=== PATIENT | female | born 1985 | race Caucasian/White ===

== ENCOUNTER 2022-05-31 02:53 | Day surgery (SDC) | payer BC, SELFPAY ==
[2022-05-24 14:27] VITALS: BMI 36.0
--- NOTE | 2022-05-24 14:40 | PC.NURSE ---
Report to the Outpatient Waiting Room, entrance under the green pavilion located off [facility], at time __6:15AM on date _05/31/22 . Planned Procedure Time: ___8:15AM . Time changes happen often and if your time is changed the preop area will call you the afternoon before. - You and your visitor will be asked to self-screen and do not enter if you have any COVID symptoms. - We encourage only one visitor and NO visitors under age 16 are allowed at this time. Your visitor will receive communication by the phone number that is given day of service. - The patient visitor is requested to social distance or may leave the building when not with patient due to restrictions. - A mask is required within the hospital. Patients may have clear liquids (water, carbonated beverages, clear teas, apple juice) until 3 hours prior to surgery with a maximum of 20 ounces. - No food from midnight until time of surgery Take the following medications with a SIP of water the morning of surgery: ___RIZATRIPTAN NEEDED Medications to discontinue per physician __HOLD ALL VITAMINS/SUPPLEMENTS 3 DAYS PRE-OP Date to take last dose____05/28/22 Please no make-up, nail vietnamese, hairspray, perfume, deodorant, or body powder the day of surgery. No jewelry (including any body piercings) or valuables the day of surgery, leave them at home. Please take a shower or bath the night before, or the morning of, surgery with an antibacterial soap. Wear comfortable, loose fitting clothing. Children are encouraged to wear pajamas. - Jewelry must be removed prior to entering the operating room. Rings and piercings that are not removed may be cut off. - The hospital will not accept responsibility for valuables. - Please leave all valuables, including medications, at home the day of surgery. If you are going home after surgery, a licensed combine driver must drive you home. - NO public transportation without another adult. - We recommend that an adult stay with you for 24 hours following discharge. - We also recommend that you do not drive, make important decision, drink alcoholic beverages, or take any drugs that were not prescribed by your health care provider for at least 24 hours after your discharge time. Follow any additional instructions given to you from your surgeon. If you or anyone in your household have experienced Covid symptoms in the past week, please notify your surgeon or the nurse liaison at the phone number below for possible testing. Telephone instructions given to __PATIENT and asked if any additional questions and then verbalized understanding. Patient advised to call surgeon office or pre surgery nurse liaison [phone] if any additional questions.
[2022-05-31] MEDS: ACETAMINOPHEN 500 MG TABLET 1000 MG PO (06:50)
[2022-05-31] MEDS: LACTATED RINGERS 1,000 ML 30 ML IV CONT (06:55)
[2022-05-31 07:13] VITALS: BP 126/68; PULSE 72; RESP 16; TEMP 36.9; O2SAT 100
--- NOTE | 2022-05-31 07:24 | WPDHPUPDATE1 ---
History and Physical Update Update Date/Time: 05/31/22 07:24 History and Physical has been reviewed, including an updated exam of the patient. There are NO changes in the patient's condition. Risks, benefits, and alternatives have been discussed and questions answered. Patient agrees to proceed with procedure.
--- NOTE | 2022-05-31 07:24 | PM.HPGS ---
History of Present Illness History of Present Illness Consent: Risks, benefits, and alternatives have been discussed and questions answered. Patient agrees to proceed with procedure. Chief complaint: Menorrhagia, Fibroids Narrative: Tiffanie Menchaca is a 37 year old female with increasingly Heavy cycles over the past 2 years. Patient now passing clots the size of an ache as well as going through about 10 pads and 10 tampons in 1 day. Pelvic ultrasound reveals possible fibroid otherwise normal. Risks of infection, bleeding, perforation, fluid imbalance,and possible pathology are reviewed. the patient voices understanding and agrees to proceed. Review of Systems Review of Systems: not repeated day of surgery; patient states no changes in status PMFSH Past Medical History Medical History (Updated 05/31/22 @ 07:29 by Christine Licona MD) Depression with anxiety Migraine (normal spontaneous vaginal delivery) NAHUM (obstructive sleep apnea) Surgical History Surgical History (Updated 05/31/22 @ 07:28 by Christine Licona MD) History of ankle surgery History of knee surgery Hx of tonsillectomy Social History Social History Smoking status: Never smoker Substance use: never Living arrangements: with family Additional living arrangements comments: SON AND S.O. Spiritual care concerns: No Meds Home Medications and Allergies Home Medications Medication Instructions Recorded Confirmed Type escitalopram oxalate 20 mg tablet 10 mg PO HS 05/24/22 05/31/22 History multivit with minerals-iron 18 1 tablet PO DAILY 05/24/22 05/31/22 History mg-folic ac 400 mcg-vit K 25 mcg tablet (Adults Multivitamin) rizatriptan 10 mg tablet 10 mg PO Q6-12H PRN Migraine 05/24/22 05/31/22 History Headache topiramate 50 mg tablet 25 mg PO HS 05/24/22 05/31/22 History Allergies Allergy/AdvReac Type Severity Reaction Status Date / Time No Known Allergies Allergy Mild Unverified 05/31/22 06:33 Vital Signs Vital Signs - 24 hr 05/31/22 07:13 Temperature 98.4 F Pulse Rate 72 Respiratory Rate 16 Blood Pressure 126/68 Pulse Oximetry 100 Oxygen Delivery Room Air Exam Const: General: healthy appearing and alert Orientation/consciousness: patient oriented x3 Resp: Effort & Inspection: normal respiratory effort GI: GI Palp: Yes Soft to palpation, No Tenderness to palpation present (GI) and No Palpable mass present : External Female Exam: normal external appearance Speculum Exam - Vagina: normal appearance of the vagina and normal vaginal discharge Speculum Exam - Cervix: normal appearance of the cervix Bimanual exam- vagina & uterus: uterine size normal and consistency normal Bimanual Exam- Adnexa, other: normal adnexae and No adnexal tenderness Neuro: General: patient oriented x3 Assessment and Plan Assessment and plan (1) Menorrhagia: Code(s): N92.0 - Excessive and frequent menstruation with regular cycle Status: Acute Assessment and Plan: plan to proceed with D&C hysteroscopy
--- NOTE | 2022-05-31 07:28 | WPDANESEPPF ---
Anes - Initial Pre Proc Eval Procedure: Operation Date: 05/31/22 08:15 Proposed Procedures p Hysteroscopy with Dilation and Curettage - Christine Licona MD Date/Time: 05/31/22 07:28 Surgeon: Christine Licona MD Pre Op Diagnosis: Menorrhagia, Fibroids Patient Data Age: 37 Gender: F Height: 1.78 m Weight: 118.4 kg Last Vital Signs Temp 36.9 C 05/31/22 07:13 Pulse 72 05/31/22 07:13 Resp 16 05/31/22 07:13 BP 126/68 05/31/22 07:13 Pulse Ox 100 05/31/22 07:13 O2 Del Method Room Air 05/31/22 07:13 Allergies Allergy/AdvReac Type Severity Reaction Status Date / Time No Known Allergies Allergy Mild Unverified 05/31/22 06:33 Home Medications Medication Instructions Recorded Confirmed Type escitalopram oxalate 20 mg tablet 10 mg PO HS 05/24/22 05/31/22 History multivit with minerals-iron 18 1 tablet PO DAILY 05/24/22 05/31/22 History mg-folic ac 400 mcg-vit K 25 mcg tablet (Adults Multivitamin) rizatriptan 10 mg tablet 10 mg PO Q6-12H PRN Migraine 05/24/22 05/31/22 History Headache topiramate 50 mg tablet 25 mg PO HS 05/24/22 05/31/22 History Patient hx anesthesia problems: none Family hx anesthesia problems: none Results Review: All pre-operative results and documents have been reviewed as part of the pre-operative evaluation. [facility] Past Medical History Medical History (Updated 05/31/22 @ 07:29 by Christine Licona MD) Depression with anxiety Migraine (normal spontaneous vaginal delivery) NAHUM (obstructive sleep apnea) Surgical History Surgical History (Updated 05/31/22 @ 07:28 by Christine Licona MD) History of ankle surgery History of knee surgery Hx of tonsillectomy Social History Social History Smoking status: Never smoker Substance use: never Living arrangements: with family Additional living arrangements comments: SON AND S.O. Spiritual care concerns: No Anes - Eval Final PreProcedure Day of Procedure 05/31/22 07:28 Patient weight: obese Heart: regular rate and rhythm Lungs: clear to auscultation and normal air movement Airway: Mallampati scale class II Neurological: alert and oriented Last oral intake: >/= 8 hours ASA classification: III Emergent: no Anesthetic plan: proceed Anesthesia type and monitoring: general GIVS Results Review: All pre-operative results and documents have been reviewed as part of the pre-operative evaluation. Informed Consent: The patient's anesthetic plan and its attendant risks and benefits were discussed with the patient/family/POA. Questions were solicited and answers provided to the satisfaction of the patient/family/POA.
[2022-05-31] MEDS: KETOROLAC 15 MG/ML VIAL (*BKC) IV PUSH (07:59)
[2022-05-31] MEDS: LIDOCAINE 1% BUFFERED WITH 8.4% SODIUM BICARB 1 ML SYRINGE 10 ML INFILTRATE (08:16)
--- NOTE | 2022-05-31 08:29 | W.PM.PROC2 ---
Procedure Note - Detailed Date of Procedure 05/31/22 Pre-op Diagnosis Menorrhagia, Fibroids Post-op Diagnosis Same Procedure Performed D&C hysteroscopy Surgeon Christine Licona MD Anesthesia MAC and Local Findings uterus sounds to 11cm and appears grossly Description of Procedure The patient is taken to the operating room and placed under anesthesia in the dorsal lithotomy position. She was prepped and draped in usual sterile fashion. [place] speculum was placed in the vagina and the cervix grasped on the anterior lip tenaculum. The uterus is sounded to 11cm. The cervix is serially dilated to an 8 Hegar. The diagnostic hysteroscope was placed with no abnormalities noted it is removed. The medium sharp curette is used to curette the endometrium until a good uterine cry is noted in all areas. All instruments are removed. Patient is awakened from anesthesia and taken to recovery in stable condition. Sponge, needle, and instrument counts are correct per the OR staff. Estimated Blood Loss 5 Drains No Packing No Pathology Yes ( endometrial curettings) Complications No immediate complications Condition Stable Disposition PACU
[2022-05-31 08:30] VITALS: BP 104/57; PULSE 87; RESP 14; O2SAT 95
[2022-05-31 09:00] VITALS: BP 110/67; PULSE 71; RESP 16
[2022-05-31 09:25] VITALS: BP 101/62; PULSE 57; RESP 16
== END 2022-05-31 09:45 | disposition home or self-care (01) ==
PROVIDERS: PCP Pediatrics; Visit Provider Obstetrics & Gynecology Gynecology
PROC: 0U5B8ZZ Destruction of Endometrium, Via Natural or Artificial Opening Endoscopic (ICD-10-PCS; CPT 58563; principal; 2022-05-31 08:15)
DX: N92.0 Excessive and frequent menstruation with regular cycle (principal); D25.9 Leiomyoma of uterus, unspecified; G47.33 Obstructive sleep apnea (adult) (pediatric); F41.8 Other specified anxiety disorders; E66.9 Obesity, unspecified; Z68.37 Body mass index [BMI] 37.0-37.9, adult
CPT/HCPCS: 58558; 88305; A9270; J1100; J1885; J2250; J2405; J2704; J3010; J7030; J7120

== ENCOUNTER 2023-01-04 08:13 | Outpatient (CLI) | payer BC, SELFPAY ==
[2023-01-04 08:42] LABS: Hematocrit 34.1 % (37.0-47.0)
== END 2023-01-04 08:14 | disposition home or self-care (01) ==
LOC: ANHSURGERY 08:18
PROVIDERS: PCP Pediatrics; Visit Provider Obstetrics & Gynecology Gynecology
DX: N92.0 Excessive and frequent menstruation with regular cycle (principal); Z01.818 Encounter for other preprocedural examination
CPT/HCPCS: 36415; 85014; 85018; 86850; 86900; 86901

== ENCOUNTER 2023-01-11 14:21 | Observation (INO) | payer BC, SELFPAY ==
[2022-12-29 12:19] VITALS: BMI 38.0
--- NOTE | 2022-12-29 12:34 | PC.NURSE ---
Report to the Outpatient Waiting Room, entrance under the green pavilion located off [facility], at time 6:00 on date 01/10/23. Planned Procedure Time: 7:30. Time changes happen often and if your time is changed the preop area will call you the afternoon before. - You and your visitor will be asked to self-screen and do not enter if you have any COVID symptoms. - A mask is optional within the hospital at this time. Patients may have clear liquids (water, carbonated beverages, clear teas, apple juice) until 3 hours prior to surgery (4:30) with a maximum of 20 ounces. - No food from midnight until time of surgery Take the following medications with a SIP of water the morning of surgery: NONE DO NOT STOP ANY OF YOUR OTHER PRESCRIPTION MEDICATIONS PRIOR TO SURGERY EXCEPT THE FOLLOWING Medications to discontinue per physician: VITAMINS/SUPPLEMENTS Date to take last dose: 01/06/23 Please no make-up, nail frisian, hairspray, perfume, deodorant, or body powder the day of surgery. No jewelry (including any body piercings) or valuables the day of surgery, leave them at home. Please take a shower or bath the night before, or the morning of, surgery with an antibacterial soap. Wear comfortable, loose fitting clothing. - Jewelry must be removed prior to entering the operating room. Rings and piercings that are not removed may be cut off. - The hospital will not accept responsibility for valuables. - Please leave all valuables, including medications, at home the day of surgery. If you are going home after surgery, a licensed cdl bulk driver must drive you home. - NO public transportation without another adult if you receive anesthesia. - We recommend that an adult stay with you for 24 hours following discharge. - We also recommend that you do not drive, make important decision, drink alcoholic beverages, or take any drugs that were not prescribed by your health care provider for at least 24 hours after your discharge time. Follow any additional instructions given to you from your surgeon. If you or anyone in your household have experienced Covid symptoms in the past week, please notify your surgeon or the nurse liaison at the phone number below for possible testing. Telephone instructions given to PT - ALLISON ZIMMERMAN and asked if any additional questions and then verbalized understanding. Patient advised to call surgeon office or pre surgery nurse liaison [phone] if any additional questions.
[2023-01-10] VITALS (11 sets, daily range): BP systolic 100–146; BP diastolic 56–82; PULSE 63–91; RESP 14–20; TEMP 36.3–37.1; O2SAT 95–100
[2023-01-10] MEDS: KETOROLAC 15 MG/ML VIAL (*BKC) IV PUSH (06:40)
[2023-01-10] MEDS: ACETAMINOPHEN 500 MG TABLET 1000 MG PO (06:40)
--- NOTE | 2023-01-10 07:12 | WPDHPUPDATE1 ---
History and Physical Update Update Date/Time: 01/10/23 07:12 History and Physical has been reviewed, including an updated exam of the patient. There are NO changes in the patient's condition. Risks, benefits, and alternatives have been discussed and questions answered. Patient agrees to proceed with procedure.
--- NOTE | 2023-01-10 07:13 | PM.IMHP ---
H&P: HPI History of Present Illness Date/Time: 01/10/23 07:13 Chief Complaint: Menorrhagia with fibroids Narrative: The patient is a 37 year 1 para 1 being admitted total abdominal hysterectomy with bilateral salpingectomy secondary to menorrhagia with fibroids. The patient has tried several conservative measures including oral contraceptives and an IUD without success. Patient continues to have heavy bleeding with anemia. Pelvic ultrasound reveals the uterus to be approximately 15cm with fibroids. Patient has elected to proceed with definitive therapy. Risks of hysterectomy including infection, bleeding, injury to internal organs ( bowel, bladder, ureters, ovaries) deep vein thrombosis, and general anesthesia are reviewed. Postoperative expectations were also discussed. Patient voices understanding and agrees to proceed. Review of Systems Review of Systems: All systems reviewed & are unremarkable except as noted in HPI and below ( HPI) PMFSH Past Medical History Medical History (Updated 01/10/23 @ 07:17 by Christine Licona MD) Depression with anxiety Migraine (normal spontaneous vaginal delivery) NAHUM (obstructive sleep apnea) Surgical History Surgical History (Updated 01/10/23 @ 07:16 by Christine Licona MD) History of ankle surgery History of hysteroscopy 05/29 benign biopsy History of knee surgery Hx of tonsillectomy Social History Social History Smoking status: Never smoker Alcohol intake: never Substance use: never Substance use type: does not use Living arrangements: with family Additional living arrangements comments: SON AND S.O. Gender identity (if verbalized by the patient): Male Sexual Orientation (if Verbalized by the Patient): Straight or Heterosexual Spiritual care concerns: No Meds Home Medications and Allergies Home Medications Medication Instructions Recorded Confirmed Type escitalopram oxalate 20 mg tablet 10 mg PO HS 05/24/22 12/29/22 History multivit with minerals-iron 18 1 tablet PO DAILY 05/24/22 12/29/22 History mg-folic ac 400 mcg-vit K 25 mcg tablet (Adults Multivitamin) rizatriptan 10 mg tablet 10 mg PO Q6-12H PRN Migraine 05/24/22 12/29/22 History Headache topiramate 50 mg tablet 25 mg PO HS 05/24/22 12/29/22 History ferrous sulfate 325 mg (65 mg 325 mg PO BID 12/29/22 12/29/22 History iron) tablet (Iron (ferrous sulfate)) Allergies Allergy/AdvReac Type Severity Reaction Status Date / Time No Known Allergies Allergy Mild Verified 01/10/23 06:55 Vital Signs Vital Signs - 24 hr 01/10/23 06:46 Temperature 97.4 F L Pulse Rate 83 Respiratory Rate 14 Blood Pressure 132/65 Pulse Oximetry 100 Oxygen Delivery Room Air Exam Const: General: healthy appearing and alert Orientation/consciousness: patient oriented x3 Resp: Effort & Inspection: normal respiratory effort GI: GI Palp: Yes Soft to palpation, No Tenderness to palpation present (GI) and No Palpable mass present : External Female Exam: normal external appearance Speculum Exam - Vagina: normal appearance of the vagina and normal vaginal discharge Speculum Exam - Cervix: normal appearance of the cervix Bimanual exam- vagina & uterus: enlarged ( approximately 15cm and firm) Bimanual Exam- Adnexa, other: normal adnexae and No adnexal tenderness Neuro: General: patient oriented x3 Assessment and Plan Assessment and plan (1) Menorrhagia: Code(s): N92.0 - Excessive and frequent menstruation with regular cycle Status: Acute Assessment and Plan: plan to proceed with total abdominal hysterectomy and bilateral salpingectomy (2) Fibroids: Code(s): D21.9 - Benign neoplasm of connective and other soft tissue, unspecified Status: Acute
--- NOTE | 2023-01-10 07:20 | P.PNAN_ITS ---
Anes - Initial Pre Proc Eval Procedure: Operation Date: 01/10/23 07:30 Proposed Procedures p Total Abdominal Hysterectomy with Bilateral Salpingectomy - Christine Licona MD Date/Time: 01/10/23 07:20 Surgeon: Christine Licona MD Pre Op Diagnosis: Menorrhagia, Fibroids Patient Data Age: 37 Gender: F Height: 1.78 m Weight: 125.9 kg Last Vital Signs Temp 36.3 C L 01/10/23 06:46 Pulse 83 01/10/23 06:46 Resp 14 01/10/23 06:46 BP 132/65 01/10/23 06:46 Pulse Ox 100 01/10/23 06:46 O2 Del Method Room Air 01/10/23 06:46 Allergies Allergy/AdvReac Type Severity Reaction Status Date / Time No Known Allergies Allergy Mild Verified 01/10/23 06:55 Home Medications Medication Instructions Recorded Confirmed Type escitalopram oxalate 20 mg tablet 10 mg PO HS 05/24/22 12/29/22 History multivit with minerals-iron 18 1 tablet PO DAILY 05/24/22 12/29/22 History mg-folic ac 400 mcg-vit K 25 mcg tablet (Adults Multivitamin) rizatriptan 10 mg tablet 10 mg PO Q6-12H PRN Migraine 05/24/22 12/29/22 History Headache topiramate 50 mg tablet 25 mg PO HS 05/24/22 12/29/22 History ferrous sulfate 325 mg (65 mg 325 mg PO BID 12/29/22 12/29/22 History iron) tablet (Iron (ferrous sulfate)) Patient hx anesthesia problems: post op nausea/vomiting Family hx anesthesia problems: post op nausea/vomiting Results Review: All pre-operative results and documents have been reviewed as part of the pre- operative evaluation. [facility] Past Medical History Medical History Depression with anxiety Migraine (normal spontaneous vaginal delivery) NAHUM (obstructive sleep apnea) Surgical History Surgical History History of ankle surgery History of hysteroscopy 05/29 benign biopsy History of knee surgery Hx of tonsillectomy Social History Social History Smoking status: Never smoker Alcohol intake: never Substance use: never Substance use type: does not use Living arrangements: with family Additional living arrangements comments: SON AND S.O. Gender identity (if verbalized by the patient): Male Sexual Orientation (if Verbalized by the Patient): Straight or Heterosexual Spiritual care concerns: No Anes - Eval Final PreProcedure Day of Procedure 01/10/23 07:20 Patient weight: morbidly obese Heart: regular rate and rhythm Lungs: clear to auscultation Airway: Mallampati scale class II Neurological: alert and oriented Last oral intake: >/= 8 hours ASA classification: III Emergent: no Anesthetic plan: proceed Anesthesia type and monitoring: general ETT and standard monitoring Results Review: All pre-operative results and documents have been reviewed as part of the pre- operative evaluation. Informed Consent: The patient's anesthetic plan and its attendant risks and benefits were discussed with the patient/family/POA. Questions were solicited and answers provided to the satisfaction of the patient/family/POA.
[2023-01-10] MEDS: LACTATED RINGERS 1,000 ML 30 ML IV CONT ×2 (07:23→09:06)
[2023-01-10] MEDS: SCOPOLAMINE 1.5 MG PATCH TRANSDERM (07:23)
[2023-01-10] MEDS: ceFAZolin 3 GM/D5W 100 ML 100 ML IVPB (07:27)
--- NOTE | 2023-01-10 09:01 | W.PM.PROC2 ---
Procedure Note - Detailed Date of Procedure 01/10/23 Pre-op Diagnosis Menorrhagia, Fibroids Post-op Diagnosis Same Procedure Performed total abdominal hysterectomy with bilateral salpingectomies Surgeon Christine Licona MD Anesthesia General Findings enlarged fibroid uterus; normal-appearing tubes and ovaries Description of Procedure The patient is taken to the operating room and placed under anesthesia in the dorsal supine position. She was prepped and draped in the usual sterile fashion. Pfannenstiel skin incision was made with a scalpel and carried down to the underlying layer of fascia. The fascia was nicked the midline and extended laterally using Sandhu scissors. Ochsners were used to tent the fascia which was then dissected off using sharp and blunt dissection. The rectus muscles were in the midline and the peritoneum entered with a Peon. The peritoneal incision was extended with blunt traction. The bowel was packed away using moist laparotomy sponges. The Babak is placed. The uterus is grasped on the cornu with large Peons. The round ligaments were doubly ligated with 0 Vicryl, transected, and the anterior leaf of the broad ligament incised meeting in the midline. The bladder is dissected off using blunt dissection with a sponge stick. The utero-ovarian ligaments are doubly clamped, transected, and suture ligated with 0 Vicryl. The mesosalpinx is doubly clamped, transected, and suture ligated with 0 Vicryl excising the tubes. The uterine vessels are skeletonized, clamped, transected, and suture ligated with 0 Vicryl. The cardinal and uterosacral ligaments are serially clamped, transected, and suture ligated with 0 Vicryl. The uterosacral ligaments were tagged for future use. The vaginal cuff was entered anteriorly with a scalpel. Allis clamps are used to grasp the vaginal cuff. The specimen is amputated with Sharon scissors. The posterior cuff has a there a very thickened posterior cervical lip versus a fibroid. This additional tissue is excised with Sharon scissors. The vaginal cuff was then grasped with Allis clamps posteriorly. The vaginal cuff was closed using 0 Vicryl in a running locked fashion. The angles were tied to the ipsilateral uterosacral ligaments which were previously tagged. The pelvis is irrigated and good hemostasis is noted. All instruments and sponges are removed. The fascia was closed using 0 Vicryl in a running fashion. Subcutaneous tissues are irrigated and made hemostatic using Bovie cautery. Skin is closed using 4-0 Vicryl in a subcuticular fashion. Dermaflex was placed over the incision. Sponge, needle, and instrument counts are correct per the OR Staff. Patient is awakened from anesthesia and taken to recovery in stable condition. Estimated Blood Loss 50 Drains Yes ( Thomas catheter) Packing No Pathology Yes ( uterus and tubes) Complications No immediate complications Condition Stable Disposition PACU
--- NOTE | 2023-01-10 09:08 | PM.DS ---
DS: Admitting Diagnosis Discharge Date 01/12/23 Admitting Diagnosis menorrhagia with fibroid uterus and anemia DS: Discharge Diagnosis Discharge Diagnosis (1) Status post total abdominal hysterectomy: Code(s): Z90.710 - Acquired absence of both cervix and uterus Status: Acute DS: Summary Hospital Course Reason for hospitalization: Postoperative care Hospital Course: At the time of discharge, the patient is tolerating regular diet, voiding, and ambulating without difficulty. Pain is under good control. Status at Discharge Functional status at discharge: independent ambulation Overall status at discharge: patient is progressing back to baseline Time Spent with Patient Time attestation: Total time spent providing and/or coordinating discharge services: DS: Data Data Completed and Pending Pending studies at discharge: Pending at discharge 01/10/23 08:38 Surgical [PTH] Routine Discharge Plan Discharge Attending physician on discharge: Christine Licona Discharging Clinician: Christine Licona Anticipated Discharge Date/Time: 01/12/23 07:28 Patient Disposition: Home, Self-Care Activity: may shower, may drive after 2 weeks and pelvic rest Diet: regular Wound Care Instructions: incision open to air Stand Alone Forms: General Discharge Instructions Follow-up/Referrals: Christine Licona MD [Physician] - Discharge Medications: New hydrocodone-acetaminophen 5-325 mg tablet 1 tablet PO Q4H PRN (Reason: pain) Qty: 20 0RF No Action rizatriptan 10 mg tablet 10 mg PO Q6-12H PRN (Reason: Migraine Headache) Patient Comments: Pt stated weeks ago escitalopram oxalate 20 mg tablet 10 mg PO HS topiramate 50 mg tablet 25 mg PO HS Adults Multivitamin 18 mg iron-400 mcg-25 mcg Tablet 1 tablet PO DAILY ferrous sulfate [Iron (ferrous sulfate)] 325 mg (65 mg iron) Tablet 325 mg PO BID Date of admission: 01/11/23 14:21 Primary Care Provider: TamarCuong Admitting Provider: Christine Licona Attending physician on admission: Christine Licona Condition: Stable
[2023-01-10] MEDS: ONDANSETRON INJ 4 MG/2 ML VIAL IV PUSH ×3 (09:20→22:19)
[2023-01-10] MEDS: fentaNYL CITRATE INJ (*CRX) 100 MCG/2 ML VIAL 25 MCG IV PUSH ×5 (09:20→09:49)
[2023-01-10] MEDS: diphenhydrAMINE HCl INJ 50 MG/ML VIAL 25 MG IV PUSH (09:38)
[2023-01-10] MEDS: KETOROLAC 30 MG/ML VIAL (*BKC) IV PUSH ×2 (11:04→17:33)
[2023-01-10] MEDS: DEXTROSE 5%/LACTATED RINGERS 1,000 ML 125 ML IV CONT (11:04)
[2023-01-10] MEDS: HYDROcodone/acetaminophen (*CRX) 5-325 MG TABLET 1 TAB PO (13:36)
[2023-01-10] MEDS: HYDROcodone/acetaminophen (*CRX) 10-325 MG TABLET 1 TAB PO ×2 (16:23→22:18)
[2023-01-10] MEDS: ESCITALOPRAM OXALATE 10 MG TABLET PO (22:18)
[2023-01-10] MEDS: TOPIRAMATE 25 MG TABLET PO (22:18)
[2023-01-11] MEDS: ONDANSETRON INJ 4 MG/2 ML VIAL IV PUSH (06:01)
[2023-01-11] MEDS: HYDROcodone/acetaminophen (*CRX) 10-325 MG TABLET 1 TAB PO ×3 (06:01→20:17)
[2023-01-11 06:15] LABS: Basophils Percent Auto 0.2 % (0.2-1.2); Eosinophils Percent Auto 0.1 % (0-4.4); Hematocrit 28.5 % (37.0-47.0); Hemoglobin 8.5 g/dL (12.0-15.0); Immature Granulocyte Absolute 0.09 K/mm3 (0.00-0.031); Immature Granulocyte Percent A 0.5 % (0-0.5); Lymphocytes Absolute Auto 2.79 K/mm3 (0.9-3.2); Mean Corpuscular HGB Conc 29.8 g/dl (32-36); Mean Corpuscular Hemoglobin 23.5 pg (26-34); Mean Corpuscular Volume 78.7 fl (80-100); Mean Platelet Volume 9.2 fl (7.4-10.4); Monocytes Absolute Auto 1.2 K/mm3 (0.1-0.6); Monocytes Percent Auto 7.2 % (2.6-8.5); Neutrophils Absolute Auto 12.3 K/mm3 (1.3-6.7); Platelet Count Result 425 k/mm3 (150-375); Red Blood Count 3.62 M/mm3 (4.2-5.4); Red Cell Distribution Width 14.6 % (11.5-14.5); White Blood Count 16.4 K/mm3 (4.5-10.0)
[2023-01-11 06:20] VITALS: BP 106/59; PULSE 71; RESP 16; TEMP 36.4; O2SAT 98
--- NOTE | 2023-01-11 07:38 | P.PNAN_ITS ---
Anes - Prog Note Post-Op Date/Time: 01/11/23 07:38 Vital Signs: Last Vital Signs Temp 37.0 C 01/10/23 22:26 Pulse 82 01/10/23 22:26 Resp 18 01/10/23 22:26 BP 100/56 L 01/10/23 22:26 Pulse Ox 95 01/10/23 22:26 O2 Del Method Room Air 01/10/23 22:26 O2 Flow Rate 8 01/10/23 09:15 Pain Score (VAS): 1 I/O: Intake & Output 01/10/23 01/10/23 01/11/23 15:59 23:59 07:59 Intake Total 600 1820 Output Total 50 400 Balance 550 1420 Laboratory Tests 01/11/23 06:07 01/11/23 06:07 WBC 16.4 H RBC 3.62 L Hgb 8.5 L Hct 28.5 L MCV 78.7 L MCH 23.5 L MCHC 29.8 L RDW 14.6 H Plt Count 425 H MPV 9.2 Immature Gran % (Auto) 0.5 Neut % (Auto) 75.0 H Lymph % (Auto) 17.[address] [place] % (Auto) 7.2 Eos % (Auto) 0.1 Baso % (Auto) 0.2 Lymph # (Auto) 2.79 [place] # (Auto) 1.2 H Eos # (Auto) 0.0 Baso # (Auto) 0.0 Abs Immat Gran (auto) 0.09 H Absolute Neuts (auto) 12.3 H Absolute Nucleated RBC 0.0 Nucleated RBC % 0.0 Patient Feedback: Patient satisfied with anesthetic care.
--- NOTE | 2023-01-11 07:40 | PM.GYNPNOP ---
TONG SETTER - A/P Postoperative Procedures: Procedures Operation Date: 01/10/23 07:30 Actual Procedure Side Surgeon p Total Abdominal Hysterectomy with Bilateral Salpingectomy Bilateral Christine Licona MD Postoperative day: 1 Postoperative status: doing well Postoperative plan: routine post-op care Time Spent With Patient Time: Total time spent is greater than 50% in coordination of care (as documented) at patient's floor/unit and/or counseling patient: Time with patient: less than 15 minutes TONG SETTER- PN:Subj Post-Op Subjective Date/time seen: 01/11/23 07:40 Subjective: patient has no complaints and pain is well controlled Exam Narrative: inc c/d/i abdomen soft, nt TONG SETTER - PN: Obj Data Vital Signs Vital Signs: Vital Signs - 24 hr 01/10/23 09:06 01/10/23 09:15 01/10/23 09:20 Temperature 98 F Pulse Rate 67 80 73 Respiratory Rate 14 18 20 Blood Pressure 124/64 119/60 104/80 Pulse Oximetry 97 100 97 Oxygen Delivery Simple Face Mask Simple Face Mask Room Air Oxygen Flow Rate 8 8 01/10/23 09:30 01/10/23 09:45 01/10/23 10:00 Temperature Pulse Rate 74 76 67 Respiratory Rate 15 15 14 Blood Pressure 106/73 146/77 H 133/82 Pulse Oximetry 98 98 Oxygen Delivery Room Air Room Air Room Air Oxygen Flow Rate 01/10/23 10:00 01/10/23 10:16 01/10/23 10:20 Temperature 98.6 F Pulse Rate 70 63 Respiratory Rate 14 16 Blood Pressure 140/76 120/70 Pulse Oximetry 95 100 Oxygen Delivery Room Air Room Air Oxygen Flow Rate 01/10/23 16:32 01/10/23 16:32 01/10/23 21:14 Temperature 98.5 F 98.7 F Pulse Rate 89 91 Respiratory Rate 16 18 Blood Pressure 125/69 114/62 Pulse Oximetry 96 96 Oxygen Delivery Room Air Oxygen Flow Rate 01/10/23 22:26 01/10/23 22:26 Temperature 98.6 F Pulse Rate 82 82 Respiratory Rate 18 18 Blood Pressure 100/56 L Pulse Oximetry 95 95 Oxygen Delivery Room Air Oxygen Flow Rate Intake/Output Intake/Output: Intake & Output 01/08/23 01/09/23 01/10/23 01/11/23 23:59 23:59 23:59 23:59 Intake Total 2520 Output Total 450 Balance 2070 Meds/Results Medications: Active Medications Generic Name Dose Route Start Last Admin Trade Name Freq PRN Reason Stop Dose Admin Acetaminophen 1,000 mg 01/10/23 10:24 Acetaminophen 500 Mg Tablet PO Q6H PRN Mild Pain (1-3) or Fever Hydrocodone Bitart/Acetaminophen 1 tab 01/10/23 10:24 01/11/23 06:01 Hydrocodone/Acetaminophen (*Crx) 10-325 Mg Tablet PO 1 tab Q3H PRN Administration Pain Rated 6 or Greater Hydrocodone Bitart/Acetaminophen 1 tab 01/10/23 10:24 01/10/23 13:36 Hydrocodone/Acetaminophen (*Crx) 5-325 Mg Tablet PO 1 tab Q3H PRN Administration Pain Rated 5 or Less Escitalopram Oxalate 10 mg 01/10/23 21:00 01/10/23 22:18 Escitalopram Oxalate 10 Mg Tablet PO 10 mg HS KIRSTY Administration Ferrous Sulfate 324 mg 01/10/23 17:00 01/10/23 17:27 Ferrous Sulfate 324 Mg Tablet PO Not Given BID KIRSTY Dextrose/Lactated Ringer's 1,000 mls @ 125 mls/hr 01/10/23 10:24 01/10/23 11:04 Dextrose 5%/Lactated Ringers IV CONT 125 mls/hr .Q8H KIRSTY Administration Fentanyl Citrate 600 mcg in 30 mls @ 0.5 mls/hr 01/10/23 11:00 Fentanyl 600 Mcg/Ns 30 Ml Hack Saw Operator IV CONT PRN PRN CONSUMER EDUCATION SPECIALIST Management Protocol 10 MCG/HR Ibuprofen 600 mg 01/10/23 10:24 Ibuprofen 600 Mg Tablet PO Q6H PRN Cramping Ketorolac Tromethamine 30 mg 01/10/23 10:24 01/10/23 17:33 Ketorolac 30 Mg/Ml Vial (*Bkc) IV PUSH 01/15/23 10:23 30 mg Q6H PRN Administration Pain Rated 4-6 Ondansetron HCl 4 mg 01/10/23 10:24 01/11/23 06:01 Ondansetron Inj 4 Mg/2 Ml Vial IV PUSH 4 mg Q6H PRN Administration Nausea Rizatriptan Benzoate 10 mg 01/10/23 10:24 Rizatriptan Benzoate 10 Mg Tablet PO Q6H PRN Migraine Headache Simethicone 80 mg 01/10/23 10:24 Simethicone 80 Mg Tab.Chew PO Q2H CO
[2023-01-11 08:35] VITALS: BP 106/49; PULSE 84; RESP 18; TEMP 37.1; O2SAT 99
[2023-01-11] MEDS: FERROUS SULFATE 324 MG TABLET PO ×2 (09:29→16:39)
[2023-01-11] MEDS: HYDROcodone/acetaminophen (*CRX) 5-325 MG TABLET 1 TAB PO ×2 (09:29→12:17)
[2023-01-11] MEDS: SIMETHICONE 80 MG TAB.CHEW PO ×2 (09:29→12:17)
[2023-01-11] MEDS: IBUPROFEN 600 MG TABLET PO ×2 (09:30→16:39)
[2023-01-11 19:30] VITALS: BP 114/51; PULSE 86; RESP 16; TEMP 36.6; O2SAT 97
[2023-01-11] MEDS: ESCITALOPRAM OXALATE 10 MG TABLET PO (21:11)
[2023-01-11] MEDS: TOPIRAMATE 25 MG TABLET PO (21:12)
[2023-01-12] MEDS: HYDROcodone/acetaminophen (*CRX) 10-325 MG TABLET 1 TAB PO ×3 (04:20→08:23)
[2023-01-12] MEDS: SIMETHICONE 80 MG TAB.CHEW PO ×2 (04:20→08:25)
--- NOTE | 2023-01-12 07:27 | PM.GYNPNOP ---
MATTING PRESS TENDER - A/P Postoperative Procedures: Procedures Operation Date: 01/10/23 07:30 Actual Procedure Side Surgeon p Total Abdominal Hysterectomy with Bilateral Salpingectomy Bilateral Christine Licona MD Postoperative day: 2 Postoperative status: doing well Postoperative plan: routine post-op care and discharge Time Spent With Patient Time: Total time spent is greater than 50% in coordination of care (as documented) at patient's floor/unit and/or counseling patient: Time with patient: less than 15 minutes MATTING PRESS TENDER- PN:Subj Post-Op Subjective Date/time seen: 01/12/23 07:27 Subjective: patient reports feeling better, patient has no complaints and pain is well controlled Exam Narrative: inc c/d/i abdomen soft, nt, nd MATTING PRESS TENDER - PN: Obj Data Vital Signs Vital Signs: Vital Signs - 24 hr 01/11/23 08:35 01/11/23 09:30 01/11/23 19:30 Temperature 98.7 F 97.8 F Pulse Rate 84 86 Respiratory Rate 18 16 Blood Pressure 106/49 L 114/51 L Pulse Oximetry 99 97 Oxygen Delivery Room Air 01/11/23 19:30 Temperature Pulse Rate Respiratory Rate Blood Pressure Pulse Oximetry Oxygen Delivery Room Air Intake/Output Intake/Output: Intake & Output 01/09/23 01/10/23 01/11/23 01/12/23 23:59 23:59 23:59 23:59 Intake Total 2520 Output Total 450 4750 Balance 2070 -4750 Meds/Results Medications: Active Medications Generic Name Dose Route Start Last Admin Trade Name Freq PRN Reason Stop Dose Admin Acetaminophen 1,000 mg 01/10/23 10:24 Acetaminophen 500 Mg Tablet PO Q6H PRN Mild Pain (1-3) or Fever Hydrocodone Bitart/Acetaminophen 1 tab 01/10/23 10:24 01/12/23 04:20 Hydrocodone/Acetaminophen (*Crx) 10-325 Mg Tablet PO 1 tab Q3H PRN Administration Pain Rated 6 or Greater Hydrocodone Bitart/Acetaminophen 1 tab 01/10/23 10:24 01/11/23 12:17 Hydrocodone/Acetaminophen (*Crx) 5-325 Mg Tablet PO 1 tab Q3H PRN Administration Pain Rated 5 or Less Escitalopram Oxalate 10 mg 01/10/23 21:00 01/11/23 21:11 Escitalopram Oxalate 10 Mg Tablet PO 10 mg HS KIRSTY Administration Ferrous Sulfate 324 mg 01/10/23 17:00 01/11/23 16:39 Ferrous Sulfate 324 Mg Tablet PO 324 mg BID KIRSTY Administration Fentanyl Citrate 600 mcg in 30 mls @ 0.5 mls/hr 01/10/23 11:00 Fentanyl 600 Mcg/Ns 30 Ml Scanning Tech IV CONT PRN PRN CODING SPEC Management Protocol 10 MCG/HR Ibuprofen 600 mg 01/10/23 10:24 01/11/23 16:39 Ibuprofen 600 Mg Tablet PO 600 mg Q6H PRN Administration Cramping Ketorolac Tromethamine 30 mg 01/10/23 10:24 01/10/23 17:33 Ketorolac 30 Mg/Ml Vial (*[facility]) IV PUSH 01/15/23 10:23 30 mg Q6H PRN Administration Pain Rated 4-6 Ondansetron HCl 4 mg 01/10/23 10:24 01/11/23 06:01 Ondansetron Inj 4 Mg/2 Ml Vial IV PUSH 4 mg Q6H PRN Administration Nausea Rizatriptan Benzoate 10 mg 01/10/23 10:24 Rizatriptan Benzoate 10 Mg Tablet PO Q6H PRN Migraine Headache Simethicone 80 mg 01/10/23 10:24 01/12/23 04:20 Simethicone 80 Mg Tab.Chew PO 80 mg Q2H PRN Administration Gas Topiramate 25 mg 01/10/23 21:00 01/11/23 21:12 Topiramate 25 Mg Tablet PO 25 mg HS KIRSTY Administration Labs 01/11/23 06:07
[2023-01-12] MEDS: IBUPROFEN 600 MG TABLET PO (08:24)
[2023-01-12] MEDS: FERROUS SULFATE 324 MG TABLET PO (08:24)
[2023-01-12 08:30] VITALS: BP 114/52; PULSE 63; RESP 16; TEMP 36.8; O2SAT 100
== END 2023-01-12 09:48 | disposition home or self-care (01) ==
LOC: ANHSURGERY 14:32 → ANHOB2 14:32
PROVIDERS: Admitting Provider Obstetrics & Gynecology Gynecology; PCP Pediatrics; Visit Provider Obstetrics & Gynecology Gynecology
PROC: 0UT94ZZ Resection of Uterus, Percutaneous Endoscopic Approach (ICD-10-PCS; CPT 58150; principal; 2023-01-10 07:30)
DX: N92.0 Excessive and frequent menstruation with regular cycle (principal); D25.9 Leiomyoma of uterus, unspecified; N80.03 Adenomyosis of the uterus; D50.0 Iron deficiency anemia secondary to blood loss (chronic); D64.9 Anemia, unspecified; F41.8 Other specified anxiety disorders; G43.909 Migraine, unspecified, not intractable, without status migrainosus; G47.33 Obstructive sleep apnea (adult) (pediatric); Z79.899 Other long term (current) drug therapy
CPT/HCPCS: 58150; 36415; 85025; 88307; 99199; A9270; G0378; J0330; J0690; J1100; J1170; J1200; J1885; J2250; J2405; J2704; J2710; J3010; J7120; J7121